=== PATIENT | male | born 1985 | race Caucasian/White ===

== ENCOUNTER 2025-02-22 08:40 | Outpatient (CLI) | payer BC, SELFPAY ==
--- OUTSIDE RECORDS SUMMARY | 2025-02-22 09:00 | XMS_ITS | Clinical Summary ---
Author Organization [address] Address [address] [place] [id number] Care Team Providers Care Director Of Services Name Role Phone No, Physician Primary Care Provider [phone] Allergies No known active allergies Medications No known medications Active Problems Problem Noted Date Diagnosed Date Sprain of anterior cruciate ligament of knee 07/2010 Complete tear of anterior cruciate ligament of k nee 02/28/2011 Knee pain 10/10/2010 Surgical History Surgery Date Site/Laterality Comments KNEE SURGERY ACL repair VASECTOMY Social History Tobacco Use Types Packs/Day Years Used Date Smoking Tobacco: Never Personal Safety Answer Date Recorded Getting School Help Needed Not on file 05/26 Sex and Gender Information Value Date Recorded Sex Assigned at Not on file Legal Sex Male 9:29 AM [employer] Gender Identity Not on file Sexual Orientation Not on file Last Filed Vital Signs Vital Sign Reading Time Taken Comments Blood Pressure 123/77 04/14/2021 10:55 AM [employer] Pulse 76 04/14/2021 10:55 AM [employer] Temperature 36.9 C (98.4 F) 04/14/2021 10:55 AM [employer] Respiratory Rate 14 04/14/2021 10:55 AM [employer] Oxygen Saturation 97% 04/14/2021 10:55 AM [employer] Inhaled Oxygen Concentration - - Weight 88 kg (194 lb) 04/14/2021 10:55 AM [employer] Height 188 cm (6' 2) 04/14/2021 10:55 AM [employer] Body Mass Index 24.91 04/14/2021 10:55 AM [employer] Plan of Treatment Not on file Insurance [facility] [employer] [address] Care Teams Director Of Services Relationship Specialty Start Date End Date No, Physician PCP - General 04/14/21
--- OUTSIDE RECORDS SUMMARY | 2025-02-22 09:00 | XMS_ITS | Clinical Summary ---
Author Organization Diogo Hernandez [facility] Address [address] [place] [address] Phone Care Team Providers Care Row Boss Name Role Phone Not Found, Stl Primary Care Provider Unavailabl e Allergies No known active allergies Medications LORazepam (ATIVAN) 1 mg tabletIndicatio ns:Vasectomy evaluation Take 3 tabs 1 hour prior to procedure 3 Tablet 1 Active HYDROcodone-joaquin taminophen (NORCO) 5-325 mg tabletIndicatio ns:Vasectomy evaluation Take 1 Tablet by mouth every 4 hours as needed for Pain, Moderate. Max Daily Amount: 6 Tablets 10 Tablet 1 Active Active Problems Problem Noted Date Diagnosed Date Vasectomy evaluation 10/31/2019 Social History Tobacco Use Types Packs/Day Years Used Date Smoking Tobacco: Never Alcohol Use Standard Drinks/Week Comments Yes 0 (1 standard drink = 0.6 oz pur e alcohol) Sex and Gender Information Value Date Recorded Sex Assigned at Not on file Legal Sex Male 2:18 PM CDT Gender Identity Not on file Sexual Orientation Not on file Last Filed Vital Signs Vital Sign Reading Time Taken Comments Blood Pressure - - Pulse - - Temperature - - Respiratory Rate - - Oxygen Saturation - - Inhaled Oxygen Concentration - - Weight 81.6 kg (180 lb) 10/31/2019 1:36 PM CDT Height 188 cm (6' 2) 10/31/2019 1:36 PM CDT Body Mass Index 23.11 10/31/2019 1:36 PM CDT Plan of Treatment Health Maintenance Due Date Last Done Comments DTAP/TDAP/TD VACCINES (1 - Tdap) 07/19/2006 HEPATITIS B VACCINES (1 of 3 - 19+ 3-dose series) 06/29 HPV VACCINES (1 - 3-dose SCDM series) 07/19/2014 INFLUENZA VACCINE (#1) 2024 Insurance [facility] [employer] PPO [id number] Care Teams Row Boss Relationship Specialty Start Date End Date Not Found, Stl NO ADDRESS ON FILE PCP - General 10/05/19
--- OUTSIDE RECORDS SUMMARY | 2025-02-22 09:00 | XMS_ITS | Clinical Summary ---
Author Organization [facility] Care Team Providers Care Event Executive Name Role Phone Unavailable Primary Care Provider Unavailabl e Social History Tobacco Use Types Packs/Day Years Used Date Smoking Tobacco: Never Assessed Sex and Gender Information Value Date Recorded Sex Assigned at Not on file Legal Sex Male 7:13 PM CDT Gender Identity Not on file Sexual Orientation Not on file Plan of Treatment Health Maintenance Due Date Last Done Comments Hepatitis C Virus (HCV) Screening 1987 TdaP Immunization 1987 Hepatitis B Immunization (1 of 3 - 19+ 3-dose series) 07/19/2006 Human Papillomavirus (HPV) Immunization (1 - 3-dose SCDM series) 07/19/2014 Influenza Immunization (#1) 2024 SARS-COV-2 Immunization ( season) 2024 06/17/2021, 2020, 06/22/2020 Respiratory Syncytial Virus (RSV) Immunization (Adult) (1 - 1-dose 75+ series) 07/19/2062 Meningococcal Immunization (ACWY) Aged Out No longer eligible b ased on patient's age to complete this topic Pneumococcal Immunization Combined Aged Out No longer eligible b ased on patient's age to complete this topic Rotavirus Immunization Aged Out No lo nger eligible based on patient's age to complete this topic
[2025-02-22 09:09] LABS: Hematocrit 45.7 % (42.0-52.0); Hemoglobin 15.7 g/dL (14.0-18.0); Mean Corpuscular HGB Conc 34.4 g/dl (32-36); Mean Corpuscular Hemoglobin 29.6 pg (26-34); Mean Corpuscular Volume 86.2 fl (80-100); Platelet Count Result 198 k/mm3 (150-375); Red Blood Count 5.30 M/mm3 (4.6-6.20); White Blood Count 5.8 K/mm3 (4.5-10.0)
[2025-02-22 09:35] LABS: Alanine Aminotransferase 20 U/L (6-50); Albumin Level 4.6 g/dL (3.5-5.1); Alkaline Phosphatase 50 U/L (38-126); Anion Gap 5 mmol/L (4-12); Aspartate Amino Transferase 26 U/L (17-59); Bilirubin,Total 0.7 mg/dL (0.2-1.3); Blood Urea Nitrogen 17 mg/dL (9-20); Calcium 9.1 mg/dL (8.4-10.2); Carbon Dioxide 28 mmol/L (22-30); Chloride 106 mmol/L (98-107); Cholesterol 166 mg/dL (0-200); Estimated Glomerular Filt Rate > 60; Glucose 87 mg/dL (65-110); HDL Direct 47 mg/dL; Potassium 4.1 mmol/L (3.4-5.0); Sodium 139 mmol/L (137-145); Total Protein 7.5 g/dL (6.3-8.2); Triglycerides 75 mg/dL (<150)
== END 2025-02-22 08:41 | disposition home or self-care (01) ==
LOC: ANHLAB 08:46
PROVIDERS: PCP Nurse Practitioner Family; Visit Provider Nurse Practitioner Family
DX: Z00.00 Encounter for general adult medical examination without abnormal findings (principal); Z13.228 Encounter for screening for other metabolic disorders; Z13.220 Encounter for screening for lipoid disorders; Z76.89 Persons encountering health services in other specified circumstances; Z13.0 Encounter for screening for diseases of the blood and blood-forming organs and certain disorders involving the immune mechanism; Z80.42 Family history of malignant neoplasm of prostate
CPT/HCPCS: 36415; 80053; 80061; 85027